=== PATIENT | male | born 1945 | race Two or more races ===

== ENCOUNTER 2018-11-24 18:17 | Emergency (ER) | payer OTHER ==
[~2018-11-24] VITALS: Ht 175.3 cm; Wt 99.8 kg
[2018-11-24] MEDS ORDERED: ATENOLOL25 MG (19:21)
[2018-11-24] MEDS ORDERED: AMOX-CLAV 875-1 EACH PO (22:06)
[2018-11-24] MEDS ORDERED: INTESTINEX680 M1 PO (22:06)
== END 2018-11-24 22:16 | disposition home or self-care (01) ==
LOC: ER 18:17
DX: S50.872A Other superficial bite of left forearm, initial encounter (principal); L03.114 Cellulitis of left upper limb; W54.0XXA Bitten by dog, initial encounter; Y93.89 Activity, other specified; Y92.488 Other paved roadways as the place of occurrence of the external cause; Y99.8 Other external cause status

== ENCOUNTER 2021-09-25 08:10 | Outpatient (CLI) | payer OTHER ==
[~2021-09-25 08:10] MED LIST: AMOX-CLAV 875-1 EACH PO; ATENOLOL25 MG; INTESTINEX680 M1 PO
== END 2021-09-25 08:17 | disposition home or self-care (01) ==
LOC: LAB 08:10
DX: R94.6 Abnormal results of thyroid function studies (principal); R73.03 Prediabetes; E55.9 Vitamin D deficiency, unspecified; N40.0 Benign prostatic hyperplasia without lower urinary tract symptoms; I10 Essential (primary) hypertension; R80.9 Proteinuria, unspecified; Z13.89 Encounter for screening for other disorder; Z12.11 Encounter for screening for malignant neoplasm of colon; Z86.010 Personal history of colon polyps

== ENCOUNTER 2021-09-27 07:47 | Outpatient (CLI) | payer OTHER | END 2021-09-27 07:54 | disposition home or self-care (01) | LOC: LAB 07:47 | DX: R73.03 Prediabetes (principal); R94.6 Abnormal results of thyroid function studies; E55.9 Vitamin D deficiency, unspecified; N40.0 Benign prostatic hyperplasia without lower urinary tract symptoms; I10 Essential (primary) hypertension; R80.9 Proteinuria, unspecified; Z13.89 Encounter for screening for other disorder; Z12.11 Encounter for screening for malignant neoplasm of colon; Z86.010 Personal history of colon polyps ==

== ENCOUNTER 2021-09-29 07:42 | Outpatient (CLI) | payer OTHER | END 2021-10-09 14:26 | disposition home or self-care (01) | LOC: SONOGRAMA 07:42 | PROVIDERS: ATTEND Internal Medicine Nephrology | DX: I11.9 Hypertensive heart disease without heart failure (principal); K76.0 Fatty (change of) liver, not elsewhere classified; R16.0 Hepatomegaly, not elsewhere classified ==

== ENCOUNTER 2022-03-14 08:58 | Outpatient (CLI) | payer OTHER | END 2022-03-14 15:40 | disposition home or self-care (01) | LOC: LAB 08:58 | PROVIDERS: ATTEND Internal Medicine Nephrology | DX: N40.0 Benign prostatic hyperplasia without lower urinary tract symptoms (principal); R97.20 Elevated prostate specific antigen [PSA]; E78.2 Mixed hyperlipidemia; R73.03 Prediabetes; R80.1 Persistent proteinuria, unspecified; I12.9 Hypertensive chronic kidney disease with stage 1 through stage 4 chronic kidney disease, or unspecified chronic kidney disease ==

== ENCOUNTER → 2022-06-20 09:45 | Outpatient (CLI) | payer OTHER | END | disposition home or self-care (01) | LOC: LAB 09:45 | PROVIDERS: ATTEND Urology | DX: N40.1 Benign prostatic hyperplasia with lower urinary tract symptoms (principal); R39.15 Urgency of urination; I11.9 Hypertensive heart disease without heart failure; I12.9 Hypertensive chronic kidney disease with stage 1 through stage 4 chronic kidney disease, or unspecified chronic kidney disease; R80.1 Persistent proteinuria, unspecified; R94.6 Abnormal results of thyroid function studies; N40.0 Benign prostatic hyperplasia without lower urinary tract symptoms; E55.9 Vitamin D deficiency, unspecified; E78.2 Mixed hyperlipidemia; R19.5 Other fecal abnormalities ==

== ENCOUNTER 2022-08-01 07:07 | Outpatient (CLI) | payer OTHER | END 2022-08-01 07:11 | disposition home or self-care (01) | LOC: LAB 07:07 | DX: I11.9 Hypertensive heart disease without heart failure (principal); I12.9 Hypertensive chronic kidney disease with stage 1 through stage 4 chronic kidney disease, or unspecified chronic kidney disease; R80.1 Persistent proteinuria, unspecified; R73.03 Prediabetes; K76.0 Fatty (change of) liver, not elsewhere classified; E78.2 Mixed hyperlipidemia; N40.0 Benign prostatic hyperplasia without lower urinary tract symptoms; N40.1 Benign prostatic hyperplasia with lower urinary tract symptoms ==

== ENCOUNTER 2022-08-01 08:07 | Outpatient (CLI) | payer OTHER | END 2022-08-01 08:16 | disposition home or self-care (01) | LOC: SONOGRAMA 08:07 | DX: K76.0 Fatty (change of) liver, not elsewhere classified (principal); R16.0 Hepatomegaly, not elsewhere classified; R80.9 Proteinuria, unspecified; I12.9 Hypertensive chronic kidney disease with stage 1 through stage 4 chronic kidney disease, or unspecified chronic kidney disease; I11.9 Hypertensive heart disease without heart failure ==

== ENCOUNTER 2022-08-02 10:22 | Outpatient (CLI) | payer OTHER | END 2022-08-02 10:23 | disposition home or self-care (01) | LOC: LAB 10:22 | DX: I11.9 Hypertensive heart disease without heart failure (principal); I12.9 Hypertensive chronic kidney disease with stage 1 through stage 4 chronic kidney disease, or unspecified chronic kidney disease; R80.1 Persistent proteinuria, unspecified; R73.03 Prediabetes; K76.0 Fatty (change of) liver, not elsewhere classified; E78.2 Mixed hyperlipidemia; N40.0 Benign prostatic hyperplasia without lower urinary tract symptoms; N40.1 Benign prostatic hyperplasia with lower urinary tract symptoms ==

== ENCOUNTER 2022-12-06 09:49 | Outpatient (CLI) | payer OTHER | END 2022-12-06 09:50 | disposition home or self-care (01) | LOC: LAB 09:49 | DX: R80.1 Persistent proteinuria, unspecified (principal); E78.2 Mixed hyperlipidemia; R94.6 Abnormal results of thyroid function studies; E55.9 Vitamin D deficiency, unspecified; I12.9 Hypertensive chronic kidney disease with stage 1 through stage 4 chronic kidney disease, or unspecified chronic kidney disease; K76.89 Other specified diseases of liver; N40.0 Benign prostatic hyperplasia without lower urinary tract symptoms; N40.1 Benign prostatic hyperplasia with lower urinary tract symptoms; I51.7 Cardiomegaly; I70.0 Atherosclerosis of aorta; R00.1 Bradycardia, unspecified ==

== ENCOUNTER 2023-03-21 09:51 | Outpatient (CLI) | payer OTHER ==
[2023-03-21 11:18] LABS: URINE APPEARANCE Clear; URINE BILIRRUBIN Negative (NEGATIVE); URINE BLOOD Negative; URINE COLOR Yellow; URINE GLUCOSE Negative (NEGATIVE); URINE LEUKOCYTE Negative; URINE NITRATE Negative; URINE PROTEIN Negative (NEGATIVE)
[2023-03-21 11:18] LABS: HEMATOCRIT 47.9 % (39.0-48.0); HEMOGLOBIN 16.4 g/dL (13-16.00); MEAN CORPUSCULAR HEMOGLOBIN 31.6 pg (27.00-32.0); MEAN CORPUSCULAR HGB CONC 34.3 g/dl (32.0-36.0); PLATELET COUNT 188 K/uL (150-450); RED BLOOD COUNT 5.21 M/uL (4.00-6.00); RED CELL DISTRIBUTION WIDTH 13.6 % (11.5-14.5)
[2023-03-21 11:22] LABS: URINE BACTERIA 12.5 uL (0.0-1933); URINE EPITHELIAL CELLS 4.1 uL (0.0-38.8); URINE RBC 5.4 uL (0.0-20.8); URINE WBC 2.1 uL (0.0-23.2)
[2023-03-21 12:06] LABS: ALBUMIN 3.8 gm/dL (3.4-5.0); BILIRUBIN TOTAL 0.86 mg/dL (0.3-1.2); CALCIUM 9.2 mg/dL (8.5-10.1); CHOL HDL RATIO 3.1 (0-5.0); CREATININE SERUM 0.93 mg/dL (0.70-1.30); GFR 79.21; GLOBULINA 2.9 G/DL (2.4-3.5); POTASSIUM 4.68 mEq/L (3.5-5.1); TOTAL PROTEIN 6.7 gm/dL (6.4-8.2); TSH 0.679 uIU/mL (0.358-3.74)
[2023-03-21 12:15] LABS: PROSTATIC SPECIFIC ANTIGEN 10.8 NG/ML (0.010-4.00)
== END 2023-03-21 13:59 | disposition home or self-care (01) ==
LOC: LAB 09:51
DX: I11.9 Hypertensive heart disease without heart failure (principal); I70.0 Atherosclerosis of aorta; R80.1 Persistent proteinuria, unspecified; E78.2 Mixed hyperlipidemia; R94.6 Abnormal results of thyroid function studies; E55.9 Vitamin D deficiency, unspecified; I12.9 Hypertensive chronic kidney disease with stage 1 through stage 4 chronic kidney disease, or unspecified chronic kidney disease; K76.0 Fatty (change of) liver, not elsewhere classified; N40.0 Benign prostatic hyperplasia without lower urinary tract symptoms; N40.1 Benign prostatic hyperplasia with lower urinary tract symptoms; R97.20 Elevated prostate specific antigen [PSA]; Z91.013 Allergy to seafood

== ENCOUNTER 2023-07-24 09:43 | Outpatient (CLI) | payer OTHER ==
[2023-07-24 11:23] LABS: HEMATOCRIT 48.5 % (39.0-48.0); HEMOGLOBIN 16.7 g/dL (13-16.00); MEAN CELL VOLUME 90.7 fL (80.0-100.00); MEAN CORPUSCULAR HEMOGLOBIN 31.2 pg (27.00-32.0); MEAN CORPUSCULAR HGB CONC 34.4 g/dl (32.0-36.0); PLATELET COUNT 170 K/uL (150-450); RED BLOOD COUNT 5.34 M/uL (4.00-6.00); RED CELL DISTRIBUTION WIDTH 13.6 % (11.5-14.5)
[2023-07-24 12:00] LABS: PH,URINE 5.5 (5.0-8.0); URINE APPEARANCE Clear; URINE BILIRRUBIN Negative (NEGATIVE); URINE BLOOD Negative; URINE COLOR Yellow; URINE GLUCOSE Negative (NEGATIVE); URINE LEUKOCYTE Negative; URINE NITRATE Negative; URINE PROTEIN Negative (NEGATIVE); URINE UROBILINOGEN 0.2 E.U./dl
[2023-07-24 12:02] LABS: URINE BACTERIA 8.8 uL (0.0-1933); URINE EPITHELIAL CELLS 3.5 uL (0.0-38.8); URINE RBC 7.6 uL (0.0-20.8)
[2023-07-24 12:10] LABS: ALBUMIN 3.9 gm/dL (3.4-5.0); BILIRUBIN TOTAL 0.75 mg/dL (0.3-1.2); CALCIUM 9.6 mg/dL (8.5-10.1); CHOL HDL RATIO 3.7 (0-5.0); CREATININE SERUM 0.91 mg/dL (0.70-1.30); GFR 81.22; GLOBULINA 2.8 G/DL (2.4-3.5); POTASSIUM 4.11 mEq/L (3.5-5.1); TOTAL PROTEIN 6.7 gm/dL (6.4-8.2); TSH 0.669 uIU/mL (0.358-3.74)
[2023-07-24 12:12] LABS: PROSTATIC SPECIFIC ANTIGEN 5.45 NG/ML (0.010-4.00)
[2023-07-24 13:56] LABS: ob POSITIVE (NEGATIVE)
== END 2023-07-24 09:44 | disposition home or self-care (01) ==
LOC: LAB 09:43
PROVIDERS: ATTEND Internal Medicine Nephrology
DX: I11.9 Hypertensive heart disease without heart failure (principal); I12.9 Hypertensive chronic kidney disease with stage 1 through stage 4 chronic kidney disease, or unspecified chronic kidney disease; R80.1 Persistent proteinuria, unspecified; R94.6 Abnormal results of thyroid function studies; R73.03 Prediabetes; N40.0 Benign prostatic hyperplasia without lower urinary tract symptoms; E78.2 Mixed hyperlipidemia; K76.0 Fatty (change of) liver, not elsewhere classified; Z12.11 Encounter for screening for malignant neoplasm of colon

== ENCOUNTER 2023-07-24 10:32 | Outpatient (CLI) | payer OTHER | END 2023-07-24 10:36 | disposition home or self-care (01) | LOC: SONOGRAMA 10:32 | PROVIDERS: ATTEND Internal Medicine Nephrology | DX: I11.9 Hypertensive heart disease without heart failure (principal); I70.0 Atherosclerosis of aorta; I12.9 Hypertensive chronic kidney disease with stage 1 through stage 4 chronic kidney disease, or unspecified chronic kidney disease; K76.0 Fatty (change of) liver, not elsewhere classified ==

== ENCOUNTER → 2023-07-26 10:22 | Outpatient (CLI) | payer OTHER ==
[2023-07-26 11:57] LABS: URINE PROT QUANT 24HR 16.5 MG/DL
[2023-07-26 12:26] LABS: URINE PROT QUANT 24 HR 156.75 MG/24HR (42-225)
[2023-07-26 12:27] LABS: CREATININE SERUM 0.82 mg/dL (0.8-1.3)
[2023-07-26 12:28] LABS: CREATINE CLEARANCE 169.3 ML/MIN (97-137)
== END | disposition home or self-care (01) ==
LOC: LAB 10:22
PROVIDERS: ATTEND Internal Medicine Nephrology
DX: I11.9 Hypertensive heart disease without heart failure (principal); I12.9 Hypertensive chronic kidney disease with stage 1 through stage 4 chronic kidney disease, or unspecified chronic kidney disease; R80.1 Persistent proteinuria, unspecified; R94.6 Abnormal results of thyroid function studies; R73.03 Prediabetes; N40.0 Benign prostatic hyperplasia without lower urinary tract symptoms; E78.2 Mixed hyperlipidemia; K76.0 Fatty (change of) liver, not elsewhere classified; Z12.11 Encounter for screening for malignant neoplasm of colon

== ENCOUNTER → 2024-01-22 11:25 | Outpatient (CLI) | payer OTHER ==
[2024-01-22 12:01] LABS: PH,URINE 5.5 (5.0-8.0); URINE BILIRRUBIN Negative (NEGATIVE); URINE BLOOD Negative; URINE COLOR Yellow; URINE GLUCOSE Negative (NEGATIVE); URINE KETONE Negative (NEGATIVE); URINE LEUKOCYTE Negative; URINE NITRATE Negative; URINE PROTEIN Negative (NEGATIVE); URINE UROBILINOGEN 0.2 E.U./dl
[2024-01-22 12:02] LABS: URINE APPEARANCE CLEAR; URINE BACTERIA 22.6 uL (0.0-1933); URINE EPITHELIAL CELLS 4.7 uL (0.0-38.8); URINE RBC 4.4 uL (0.0-20.8); URINE WBC 2.3 uL (0.0-23.2)
[2024-01-22 12:30] LABS: ALBUMIN 3.7 gm/dL (3.4-5.0); BILIRUBIN TOTAL 0.63 mg/dL (0.3-1.2); CALCIUM 9.3 mg/dL (8.5-10.1); CHOL HDL RATIO 4.1 (0-5.0); CREATININE SERUM 1.09 mg/dL (0.70-1.30); GFR 65.77; GLOBULINA 2.9 G/DL (2.4-3.5); POTASSIUM 4.51 mEq/L (3.5-5.1); TOTAL PROTEIN 6.6 gm/dL (6.4-8.2)
[2024-01-22 12:36] LABS: HEMATOCRIT 45.1 % (39.0-48.0); HEMOGLOBIN 15.6 g/dL (13-16.00); MEAN CORPUSCULAR HEMOGLOBIN 31.4 pg (27.00-32.0); MEAN CORPUSCULAR HGB CONC 34.5 g/dl (32.0-36.0); PLATELET COUNT 228 K/uL (150-450); RED BLOOD COUNT 4.96 M/uL (4.00-6.00); RED CELL DISTRIBUTION WIDTH 13.7 % (11.5-14.5)
== END | disposition home or self-care (01) ==
LOC: LAB 11:25
PROVIDERS: ATTEND Internal Medicine Nephrology
DX: I11.9 Hypertensive heart disease without heart failure (principal); I12.9 Hypertensive chronic kidney disease with stage 1 through stage 4 chronic kidney disease, or unspecified chronic kidney disease; R80.1 Persistent proteinuria, unspecified; E78.2 Mixed hyperlipidemia; R73.03 Prediabetes; N18.9 Chronic kidney disease, unspecified

== ENCOUNTER 2024-03-25 22:50 | Emergency (ER) | payer OTHER ==
[~2024-03-25] VITALS: Ht 172.7 cm; Wt 99.8 kg
[2024-03-25] MEDS ORDERED: LOSARTAN POTASS50 MG PO (23:23)
[2024-03-25] MEDS ORDERED: AMLODIPINE-OLM1 EAC2 PO (23:24)
[2024-03-25] MEDS ORDERED: SIMVASTATIN5 MG PO (23:24)
[2024-03-25] MEDS ORDERED: FINASTERIDE5 MG PO (23:24)
[2024-03-26] MEDS ORDERED: PROMETHAZINE HCL 50 MG/ML AMPUL IM STA (01:47)
[2024-03-26] MEDS ORDERED: HYOSCYAMINE SULFATE 0.125 MG TAB.SUBL SL STA (01:47)
[2024-03-26] MEDS ORDERED: LACTOBACILLUS ACIDOPHILUS 1 CAP CAP PO STA (01:48)
[2024-03-26] MEDS ORDERED: FAMOTIDINE/PF 20 MG/2 ML VIAL IV PUSH STA (01:48)
[2024-03-26] MEDS ORDERED: 0.9 % SODIUM CHLORIDE 1,000 ML IV ONE (02:00)
[2024-03-26 02:28] LABS: HEMATOCRIT 47.9 % (39.0-48.0); HEMOGLOBIN 16.8 g/dL (13-16.00); MEAN CELL VOLUME 90.3 fL (80.0-100.00); MEAN CORPUSCULAR HEMOGLOBIN 31.6 pg (27.00-32.0); PLATELET COUNT 170 K/uL (150-450); RED CELL DISTRIBUTION WIDTH 14.1 % (11.5-14.5)
[2024-03-26 03:07] LABS: CALCIUM 8.8 mg/dL (8.5-10.1); CREATININE SERUM 1.29 mg/dL (0.70-1.30); GFR 54.15; POTASSIUM 4.07 mEq/L (3.5-5.1)
[2024-03-26 03:22] LABS: PH,URINE 5.5 (5.0-8.0); URINE APPEARANCE Clear; URINE BILIRRUBIN Negative (NEGATIVE); URINE BLOOD Negative; URINE COLOR Dark Yellow; URINE GLUCOSE Negative (NEGATIVE); URINE KETONE Negative (NEGATIVE); URINE LEUKOCYTE Moderate; URINE NITRATE Negative; URINE PROTEIN Negative (NEGATIVE); URINE UROBILINOGEN 0.2 E.U./dl
[2024-03-26 03:26] LABS: URINE EPITHELIAL CELLS 10.1 uL (0.0-38.8); URINE RBC 8.5 uL (0.0-20.8); URINE WBC 7.7 uL (0.0-23.2)
[2024-03-26 03:42] LABS: URINE BACTERIA > 9821.5 uL (0.0-1933); URINE CAST 1.17 uL (0.0-1.40)
[2024-03-26] MEDS ORDERED: CIPRO500 MG PO (07:17)
[2024-03-26] MEDS ORDERED: ONDANSETRON ODT4 MG PO (07:17)
[2024-03-26] MEDS ORDERED: INTESTINEX680 M2 PO (07:17)
[2024-03-26] MEDS ORDERED: PEPCID40 MG PO (07:17)
== END 2024-03-26 07:27 ==
LOC: ER 22:50
PROVIDERS: General Practice
DX: K52.89 Other specified noninfective gastroenteritis and colitis (principal); R19.7 Diarrhea, unspecified; I10 Essential (primary) hypertension; Z91.013 Allergy to seafood
CPT/HCPCS: 36415; 96365; 96366; 96372; 99282; J2550; J3490; J7030

== ENCOUNTER 2024-05-27 11:15 | Outpatient (CLI) | payer OTHER ==
[~2024-05-27 11:15] MED LIST changes: +AMLODIPINE-OLM1 EAC2 PO; +CIPRO500 MG PO; +FINASTERIDE5 MG PO; +INTESTINEX680 M2 PO; +LOSARTAN POTASS50 MG PO; +ONDANSETRON ODT4 MG PO; +PEPCID40 MG PO; +SIMVASTATIN5 MG PO
[2024-05-27 11:57] LABS: URINE APPEARANCE Clear; URINE BILIRRUBIN Negative (NEGATIVE); URINE BLOOD Negative; URINE COLOR Yellow; URINE GLUCOSE Negative (NEGATIVE); URINE KETONE Trace (NEGATIVE); URINE LEUKOCYTE Negative; URINE NITRATE Negative; URINE PROTEIN Negative (NEGATIVE); URINE UROBILINOGEN 0.2 E.U./dl
[2024-05-27 11:58] LABS: URINE EPITHELIAL CELLS 5.8 uL (0.0-38.8); URINE RBC 2.2 uL (0.0-20.8)
[2024-05-27 12:07] LABS: HEMATOCRIT 47.7 % (39.0-48.0); HEMOGLOBIN 16.4 g/dL (13-16.00); MEAN CELL VOLUME 90.7 fL (80.0-100.00); MEAN CORPUSCULAR HEMOGLOBIN 31.2 pg (27.00-32.0); MEAN CORPUSCULAR HGB CONC 34.3 g/dl (32.0-36.0); PLATELET COUNT 201 K/uL (150-450); RED BLOOD COUNT 5.26 M/uL (4.00-6.00)
[2024-05-27 12:40] LABS: URINE CAST 0.29 uL (0.0-1.40); URINE WBC 1.5 uL (0.0-23.2)
[2024-05-27 13:08] LABS: BILIRUBIN TOTAL 0.63 mg/dL (0.3-1.2); CALCIUM 9.2 mg/dL (8.5-10.1); CHOL HDL RATIO 3.4 (0-5.0); CREATININE SERUM 1.13 mg/dL (0.70-1.30); GFR 63.09; GLOBULINA 3.1 G/DL (2.4-3.5); POTASSIUM 4.14 mEq/L (3.5-5.1); TOTAL PROTEIN 7.1 gm/dL (6.4-8.2); TSH 1.28 uIU/mL (0.358-3.74)
[2024-05-27 13:22] LABS: PROSTATIC SPECIFIC ANTIGEN 5.76 NG/ML (0.010-4.00)
== END 2024-05-27 11:17 | disposition home or self-care (01) ==
LOC: RAD 11:15
PROVIDERS: ATTEND Internal Medicine Nephrology
DX: I11.9 Hypertensive heart disease without heart failure (principal); I70.0 Atherosclerosis of aorta

== ENCOUNTER 2024-05-27 12:18 | Outpatient (CLI) | payer OTHER | END 2024-05-27 12:20 | disposition home or self-care (01) | LOC: SONOGRAMA 12:18 | PROVIDERS: ATTEND Internal Medicine Nephrology | DX: I11.9 Hypertensive heart disease without heart failure (principal); I12.9 Hypertensive chronic kidney disease with stage 1 through stage 4 chronic kidney disease, or unspecified chronic kidney disease; I70.0 Atherosclerosis of aorta; K76.0 Fatty (change of) liver, not elsewhere classified ==

== ENCOUNTER → 2024-05-28 | Outpatient (CLI) | payer OTHER ==
[2024-05-28 13:29] LABS: URINE PROT QUANT 24 HR 192.5 MG/24HR (42-225)
[2024-05-28 13:30] LABS: ob NEGATIVE (NEGATIVE)
[2024-05-28 14:27] LABS: CREATINE CLEARANCE 190.5 ML/MIN (97-137); CREATININE SERUM 1.07 mg/dL (0.8-1.3)
== END | disposition home or self-care (01) ==
LOC: LAB 12:03
PROVIDERS: ATTEND Internal Medicine Nephrology
DX: Z12.11 Encounter for screening for malignant neoplasm of colon (principal); E55.9 Vitamin D deficiency, unspecified; N40.0 Benign prostatic hyperplasia without lower urinary tract symptoms; R94.6 Abnormal results of thyroid function studies; K76.0 Fatty (change of) liver, not elsewhere classified; I11.9 Hypertensive heart disease without heart failure; I12.9 Hypertensive chronic kidney disease with stage 1 through stage 4 chronic kidney disease, or unspecified chronic kidney disease; R80.1 Persistent proteinuria, unspecified; R73.03 Prediabetes

== ENCOUNTER 2024-08-27 14:38 | Outpatient (CLI) | payer OTHER ==
[2024-08-27 16:08] LABS: PH,URINE 5.5 (5.0-8.0); URINE APPEARANCE Clear; URINE BACTERIA 20.8 uL (0.0-1933); URINE BILIRRUBIN Negative (NEGATIVE); URINE BLOOD Negative; URINE COLOR Yellow; URINE EPITHELIAL CELLS 7.2 uL (0.0-38.8); URINE GLUCOSE Negative (NEGATIVE); URINE KETONE Negative (NEGATIVE); URINE LEUKOCYTE Negative; URINE NITRATE Negative; URINE PROTEIN Negative (NEGATIVE); URINE RBC 3.9 uL (0.0-20.8); URINE UROBILINOGEN 0.2 E.U./dl; URINE WBC 3.9 uL (0.0-23.2)
[2024-08-27 16:14] LABS: ALBUMIN 3.8 gm/dL (3.4-5.0); BILIRUBIN TOTAL 0.89 mg/dL (0.3-1.2); CALCIUM 8.9 mg/dL (8.5-10.1); CHOL HDL RATIO 3.1 (0-5.0); CREATININE SERUM 1.05 mg/dL (0.70-1.30); GFR 68.67; GLOBULINA 2.9 G/DL (2.4-3.5); POTASSIUM 4.54 mEq/L (3.5-5.1); TOTAL PROTEIN 6.7 gm/dL (6.4-8.2)
== END 2024-08-27 14:57 | disposition home or self-care (01) ==
LOC: LAB 14:38
PROVIDERS: ATTEND Internal Medicine Nephrology
DX: I11.9 Hypertensive heart disease without heart failure (principal); I12.9 Hypertensive chronic kidney disease with stage 1 through stage 4 chronic kidney disease, or unspecified chronic kidney disease; R73.03 Prediabetes; R80.1 Persistent proteinuria, unspecified; E78.2 Mixed hyperlipidemia

== ENCOUNTER → 2024-12-31 11:01 | Outpatient (CLI) | payer OTHER ==
[2024-12-31 11:55] LABS: BASO % 0.5 % (0.1-1.2); EOS # 0.08 (0.04-0.54); EOS % 1.3 % (0.7-7.0); LYMPH # 2.62 (1.18-3.74); LYMPH % 41.5 % (19.3-53.1); MEAN PLATELET VOLUME 10.50 fl (9.4-12.4); MONO # 0.72 (0.24-0.82); MONO % 11.4 % (4.7-12.5); NEUT # 2.85 (1.56-6.13); NEUT % 45.0 % (34.0-71.1); RED CELL DISTRIBUTION WIDTH 13.2 % (11.6-14.4)
[2024-12-31 12:14] LABS: URINE APPEARANCE Clear; URINE BILIRRUBIN Negative (NEGATIVE); URINE BLOOD Negative; URINE COLOR Dark Yellow; URINE GLUCOSE Negative (NEGATIVE); URINE KETONE Trace (NEGATIVE); URINE LEUKOCYTE Negative; URINE NITRATE Negative; URINE PROTEIN Negative (NEGATIVE); URINE UROBILINOGEN 0.2 E.U./dl
[2024-12-31 12:18] LABS: URINE BACTERIA 25.1 uL (0.0-1933); URINE EPITHELIAL CELLS 6.4 uL (0.0-38.8); URINE RBC 2.6 uL (0.0-20.8); URINE WBC 2.4 uL (0.0-23.2)
[2024-12-31 12:24] LABS: URINE CAST 0.29 uL (0.0-1.40)
[2024-12-31 12:36] LABS: ALT/SGPT 36.0 U/L (12-78); AST/SGOT 19.0 U/L (15-37); BILIRUBIN TOTAL 0.66 mg/dL (0.3-1.2); BUN CREA RATIO 20.0 (7.0-25.0); CHOL HDL RATIO 3.3 (0-5.0); CREATININE SERUM 0.89 mg/dL (0.70-1.30); GFR 82.88; GLOBULINA 2.8 G/DL (2.4-3.5); GLUCOSE FASTING 98.0 mg/dL (65-100); HDL 34.0 mg/dl (40-60); LDL 55.0 mg/dl (0-130); OSMOLALITY SERUM 287.0 MOSM/KG (275-295); PROSTATIC SPECIFIC ANTIGEN 2.92 NG/ML (0.010-4.00); VLDL 22.0 (0-39)
== END | disposition home or self-care (01) ==
LOC: LAB 11:01
PROVIDERS: ATTEND Internal Medicine Nephrology
DX: I11.9 Hypertensive heart disease without heart failure (principal); I12.9 Hypertensive chronic kidney disease with stage 1 through stage 4 chronic kidney disease, or unspecified chronic kidney disease; R80.1 Persistent proteinuria, unspecified; R73.03 Prediabetes; N40.0 Benign prostatic hyperplasia without lower urinary tract symptoms; E78.2 Mixed hyperlipidemia; K76.0 Fatty (change of) liver, not elsewhere classified